=== PATIENT | male | born 1945 | race Caucasian/White ===

== ENCOUNTER → 2019-03-18 | Outpatient (CLI) | payer BC ==
--- NOTE | 2019-03-18 14:11 | Diagnostic Imaging Report ---
CLINICAL INDICATION: Patient with pain in low back for about three weeks. EXAM: X-ray of the lumbar spine, three views. COMPARISON: None. FINDINGS: There is levoscoliosis of lumbar spine. There is severely hypertrophic spurs seen throughout the thoracolumbar spine and facet arthropathy/hypertrophy. There are mild compression deformities involving the L1 vertebra with no definite cortical disruption. Sacroiliac joints are unremarkable. IMPRESSION: 1: There is a mild compression deformity of the L1 vertebra of unknown age. CT scan of the lumbar spine would better evaluate. 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 Dictated by: Dictated on workstation # [id number]
== END ==
LOC: RAD FS 13:41
PROVIDERS: ATTEND Family Medicine
DX: M47.816 Spondylosis without myelopathy or radiculopathy, lumbar region (principal); M43.8X6 Other specified deforming dorsopathies, lumbar region; M51.37 Other intervertebral disc degeneration, lumbosacral region
CPT/HCPCS: 72110

== ENCOUNTER → 2019-12-24 | Outpatient (CLI) | payer MEDICARE, OTHER ==
--- NOTE | 2019-12-24 16:36 | Diagnostic Imaging Report ---
PROCEDURE: MRI lumbar spine. TECHNIQUE: Multiplanar, multisequence MRI of the lumbar spine was performed without contrast. DATE: December 24, 2019. COMPARISON: Lumbar spine radiographs March 18, 2019. INDICATION: 74-year-old male, low back pain. FINDINGS: There is a mild lumbar levocurvature. The anterior to posterior alignment of the lumbar spine is unremarkable. There is no evidence of a diffuse marrow infiltrating or replacing process. There is no identified pars interarticularis defect. There is no identified concerning focal bone lesion. There is no identified compression deformity or other fracture. The visualized cord and conus medullaris is unremarkable and terminates at the L1 level. There is moderate disc height loss at L1-L2. There is severe disc height loss at L5-S1. L1-L2: There is mild diffuse disc bulge. There are right greater than left facet degenerative changes. There is ligamentum flavum hypertrophy on the right. There is mild bilateral foraminal narrowing. There is no high-grade spinal canal stenosis. L2-L3: There is mild diffuse disc bulge. The facet joints and ligamentum flavum are unremarkable. There is mild right foraminal narrowing. There is no spinal canal stenosis. L3-L4: There is mild diffuse disc bulge. There are mild bilateral facet degenerative changes without prominent ligamentum flavum hypertrophy. There is moderate right and mild left foraminal narrowing. There is no high-grade spinal canal stenosis. L4-L5: There is diffuse disc bulge. There is severe bilateral facet degenerative changes with ligamentum flavum hypertrophy. There is a periarticular cyst associated with the left facet joint extending towards the central aspect of the spinal canal, measuring 12 x 10 mm in size. There is severe narrowing of the bilateral lateral recesses. There is moderate to severe left and moderate to severe right foraminal narrowing. There is severe spinal canal stenosis. L5-S1: There is diffuse disc bulge. There are mild left facet degenerative changes. There is moderate to severe bilateral foraminal narrowing. There is no spinal canal stenosis. IMPRESSION: Multilevel disc and facet degenerative changes of the lumbar spine, as described specifically level by level above. Findings are most notable at L4-L5, L3-L4 and L5-S1. Dictated by: Dictated on workstation # [id number]
== END ==
LOC: RAD 12:12
PROVIDERS: ATTEND Physician Assistant
DX: M47.816 Spondylosis without myelopathy or radiculopathy, lumbar region (principal)
CPT/HCPCS: 72148

== ENCOUNTER → 2020-07-10 | Outpatient (CLI) | payer MEDICARE, OTHER ==
--- NOTE | 2020-07-10 12:45 | Diagnostic Imaging Report ---
INDICATION: Right knee pain, fall. TIME OF EXAM: 12:22 PM Multiple views of the right knee were obtained. The lateral plate and numerous screws transfixing distal femur. There is lateral plate and numerous screws transfixing the proximal tibia. The hardware appears to be intact without fracture or loosening. Alignment of the knee is normal. Joint spaces are well maintained. Articular surfaces appear to be fairly smooth. There is no joint effusion. IMPRESSION: Postoperative changes to the femur and tibia. No acute abnormality is detected. Dictated by: Dictated on workstation # [id number]
--- NOTE | 2020-07-10 14:56 | Diagnostic Imaging Report ---
INDICATION: Pain in the right leg, fall. TIME OF EXAM: 12:17 PM. FINDINGS: Two views of the right femur were obtained. The alignment at the hip and knee is normal. There is a lateral plate and numerous screws transfixing the distal femur. The hardware is intact. There is also hardware transfixing the proximal right tibia. The bony structures are intact. No acute bony abnormality is seen. IMPRESSION: Postop changes. No acute abnormality is detected. Dictated by: Dictated on workstation # [id number]
== END ==
LOC: RAD FS 12:00
PROVIDERS: ATTEND Nurse Practitioner Family
DX: S89.91XA Unspecified injury of right lower leg, initial encounter (principal); Z98.890 Other specified postprocedural states
CPT/HCPCS: 73552; 73562

== ENCOUNTER 2021-05-03 06:42 | Emergency (ER) | payer MEDICARE, OTHER ==
--- NOTE | 2021-05-03 07:14 | ED Lower Extremity ---
General Chief Complaint: Lower Extremity Stated Complaint: RT LOWER BACK/HIP PAIN Source: patient, EMS Exam Limitations: no limitations History of Present Illness Date Seen by Provider: May 03, 2021 Time Seen by Provider: 07:00 Initial Comments 75-year-old male presents via EMS from home this morning because of severe right lower back and hip pain. Patient states it has been bad for the past 2 weeks and significantly worse the last several days. He saw his orthopedic surgeon 3 days ago and scheduled for an MRI of his lumbar spine this morning at 5 in [place]. He was given oral steroids as well as a muscle relaxer and he has been taking his 's hydrocodone with no relief. Past surgical history signif icant for lumbar laminectomy on the left side a few years ago as well as a right femur fracture and a margaret in his right hip and femur for repair a few years ago. States has had pain on the right lower extremity for years. For the past 2 days, patient is been unable to get out of bed due to his severe pain and has not been eating. Took a hydrocodone this morning without any relief, then given 100mcg Fentanyl en-route by EMS Allergies and Home Medications Allergies Coded Allergies: Penicillins (Verified Allergy, Unknown, 05/03/21) Patient Home Medication List Home Medication List Reviewed: Yes Review of Systems Constitutional: No fever, No malaise, No weakness; other (pain 10/10) EENTM: no symptoms reported Respiratory: No cough, No short of breath, No stridor, No wheezing Cardiovascular: No chest pain, No edema, No palpitations, No syncope Gastrointestinal: No abdominal pain; loss of appetite; No nausea, No vomiting Genitourinary: No dysuria, No frequency Musculoskeletal: back pain, joint pain, muscle pain; No neck pain Skin: No change in color, No rash Psychiatric/Neurological: Denies Numbness, Denies Paresthesia, Denies Tingling, Denies Weakness Past Glzhxun-Seegae-Wrnjcd Hx Patient Social History Tobacco Use?: Yes Tobacco type used: Cigarettes Substance use?: No Alcohol Use?: Yes Alcohol type: Beer, Wine Alcohol Frequency: Once in a while Pt feels they are or have been: No Immunizations Up To Date Influenza Vaccine Up-to-Date: No; Not Current Physical Exam Vital Signs Vital Signs - First Documented 05/03/21 06:56 Temp 36.2 Pulse 65 Resp 16 B/P (MAP) 147/84 (105) Pulse Ox 93 O2 Delivery Room Air Capillary Refill : Less Than 3 Seconds Height, Weight, BMI Height: '" Weight: lbs. oz. kg; BMI Method: General Appearance: WD/WN, no apparent distress, other (sleeping in room and had to be awakened. ) HEENT: PERRL/EOMI, normal ENT inspection Neck: non-tender, supple Cardiovascular: regular rate, rhythm, no JVD Respiratory: chest non-tender, lungs clear, normal breath sounds, no respiratory distress, no accessory muscle use Gastrointestinal: non tender, soft; No distended, No guarding, No rebound Back: normal inspection, no CVA tenderness, no vertebral tenderness, other (mild paraspinal TTP R lower lumbar) Hips: right hip bone tenderness, right hip limited range of motion, right hip pain, right hip soft tissue tenderness Legs: bilateral leg non-tender, bilateral leg normal inspection, bilateral leg normal range of motion, bilateral leg no evidence of injury Knees: bilateral knee non-tender, bilateral knee normal inspection, bilateral knee normal range of motion, bilateral knee no evidence of injury Ankles: bilateral ankle non-tender, bilateral ankle normal inspection, bilateral ankle normal range of motion Feet: bilateral foot non-tender, bilateral foot normal inspection, bilateral foot normal range of motion Neurologic/Tendon: normal sensation, normal motor functions, responds to pain Neurologic/Psychiatric: no motor/sensory deficits, alert, normal mood/affect, oriented x 3 Skin: normal color, warm/dry Progress/Results/Core Measures Results/Orders Lab Results Laboratory Tests Test 05/03/21 06:48 Range/Units White Blood Count 12.4 H 4.3-11.0 10^3/uL Red Blood Count 5.21 4.35-5.85 10^6/uL Hemoglobin 16.7 13.3-17.7 G/DL Hematocrit 50 40-54 % Mean Corpuscular Volume 96 80-99 FL Mean Corpuscular Hemoglobin 32 25-34 PG Mean Corpuscular Hemoglobin Concent 34 32-36 G/DL Red Cell Distribution Width 13.2 10.0-14.5 % Platelet Count 209 130-400 10^3/uL Mean Platelet Volume 10.7 H 7.4-10.4 FL Immature Granulocyte % (Auto) 1 % Neutrophils (%) (Auto) 71 42-75 % Lymphocytes (%) (Auto) 18 12-44 % Monocytes (%) (Auto) 9 0-12 % Eosinophils (%) (Auto) 0 0-10 % Basophils (%) (Auto) 1 0-10 % Neutrophils # (Auto) 8.8 H 1.8-7.8 X 10^3 Lymphocytes # (Auto) 2.3 1.0-4.0 X 10^3 Monocytes # (Auto) 1.2 H 0.0-1.0 X 10^3 Eosinophils # (Auto) 0.0 0.0-0.3 10^3/uL Basophils # (Auto) 0.1 0.0-0.1 10^3/uL Immature Granulocyte # (Auto) 0.1 0.0-0.1 10^3/uL Sodium Level 140 135-145 MMOL/L Potassium Level 4.1 3.6-5.0 MMOL/L Chloride Level 102 98-107 MMOL/L Carbon Dioxide Level 25 21-32 MMOL/L Anion Gap 13 5-14 MMOL/L Blood Urea Nitrogen 18 7-18 MG/DL Creatinine 0.96 0.60-1.30 MG/DL Estimat Glomerular Filtration Rate 77 BUN/Creatinine Ratio 19 Glucose Level 124 H 70-105 MG/DL Calcium Level 9.1 8.5-10.1 MG/DL Corrected Calcium 8.8 8.5-10.1 MG/DL Total Bilirubin 0.5 0.1-1.0 MG/DL Aspartate Amino Transf (AST/SGOT) 15 5-34 U/L Alanine Aminotransferase (ALT/SGPT) 17 0-55 U/L Alkaline Phosphatase 83 40-136 U/L Total Protein 7.5 6.4-8.2 GM/DL Albumin 4.4 3.2-4.5 GM/DL My Orders Orders - MANASVENSTGANESH RUIZ DO Ct Pelvis Wo (05/03/21 07:13) Ct Lumbar Spine Wo (05/03/21 07:13) Fentanyl Inj (Sublimaze Injection) (05/03/21 07:45) Cbc With Automated Diff (05/03/21 07:43) Comprehensive Metabolic Panel (05/03/21 07:43) Fentanyl Inj (Sublimaze Injection) (05/03/21 08:45) Fentanyl Inj (Sublimaze Injection) (05/03/21 08:40) Medications Given in ED Current Medications Medications Dose Ordered Sig/Ynes Route Start Time Stop Time Status Last Admin Dose Admin Fentanyl Citrate 50 mcg ONCE ONCE IVP 05/03/21 07:45 05/03/21 07:46 DC 05/03/21 07:49 50 MCG Fentanyl Citrate 50 mcg ONCE ONCE IVP 05/03/21 08:45 05/03/21 08:46 DC 05/03/21 08:45 50 MCG Vital Signs/I&O 05/03/21 05/03/21 06:56 10:14 Temp 36.2 36.2 Pulse 65 74 Resp 16 16 B/P (MAP) 147/84 (105) 142/72 Pulse Ox 93 97 O2 Delivery Room Air Room Air Blood Pressure Mean: 105 Progress Progress Note : Progress Note [facility] Dr Foster's office @ 1329[facility] [place] and only plan at the time was to get an MRI, then follow up 0845- called Dr John to consider admission Diagnostic Imaging Diagonstic Imaging: CT Comments COMPARISON: No priors for direct comparison. There are advanced degenerative changes to the visualized lower lumbar spine with lower lumbar spinal decompression with laminectomy. Seen best on axial image 288 series 3, there is a subtle buckle deformity to the superficial and deep cortex of the inferior right pubic ramus consistent with a nondisplaced fracture. While a superior ramus fracture would be suspected, one cannot be visualized. The articular acetabulum and the anterior and posterior columns appeared normal. There are arthritic changes to the bilateral hips as a symmetric chronic finding. No sacrococcygeal fracture. There are degenerative changes to the SI joints without diastases or erosion. The pubic symphysis reveals degenerative changes without diastases. The medial pubic bone is intact. No pelvic intra or extraperitoneal hematoma and no sidewall or intramuscular hemorrhage. The femoral heads, necks, trochanters and subtrochanteric shafts intact. No other significant finding. IMPRESSION: A subtle acuity indeterminate buckle fracture deformity to the right inferior pubic ramus. No other fracture identified and no evidence for pelvic intra or extraperitoneal nor intramuscular hematoma. Arthritic changes to the remaining pelvic and hip joints but no other potential acute finding. Dictated on workstation # [id number] Dict: 05/03/21 0759 Trans: 05/03/21 0818 [facility] [id number] Interpreted by: KATIUSKA BRAVO Electronically signed by: COMPARISON: MRI of the lumbar spine without contrast dated 12/24/2019. FINDINGS: There is a partially visualized distal abdominal aortic aneurysm which measures at least 4.4 cm in greatest axial dimension. 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 There is no acute lumbar spine fracture. Stable mild chronic anterior wedge compression deformity of the L1 vertebra. There are interval posterior changes to the lower lumbar spine with L4-L5 laminectomies. There is no lumbar instrumentation seen. There are hypertrophic spurs throughout the lumbar spine with facet arthropathy. L1-L2: There is stable grade 1 retrolisthesis of L1 on L2. Again noted diffuse disk bulge and moderate loss of disk space height. There are disk spurs extend into the foraminal regions bilaterally with moderate to severe bilateral neural foramen narrowing. There is at least mild to moderate central canal stenosis. There is mild bilateral facet arthropathy. L2-L3: Stable subtle grade 1 retrolisthesis of L2 on L3. There is diffuse disk bulge with moderate loss of disk space height. There is moderate bilateral facet arthropathy. There is severe right neural foramen narrowing and mild to moderate left neural foramen narrowing which appears stable. There is at least mild central canal narrowing. L3-L4: There is a diffuse disk bulge and moderate bilateral facet arthropathy/hypertrophy. There is interval decompression of the thecal sac posteriorly with no significant bony central canal narrowing. Again seen moderate right neural foramen narrowing and moderate to severe left neural foramen narrowing which is not significantly changed. L4-L5: There is severe bilateral facet arthropathy/hypertrophy. There is interval resection of previously seen prominent left articular facet synovial cyst. There is no significant bony central canal narrowing. Stable severe bilateral neural foramen narrowing. L5-S1: There is diffuse disk bulge with moderate to severe loss of disk space height. There is severe bilateral facet arthropathy/hypertrophy. There is interval decompression of the thecal sac with no significant bony central canal stenosis. There are stable severe bilateral neural foramen narrowing. IMPRESSION: 1: There are interval posterior changes with L4-L5 laminectomies and decompression of the thecal sac. Previously seen left L4-L5 articular facet synovial cyst has been resected in the interim. There is now no significant bony central canal narrowing at the L3-L5 level. 2: There is no acute lumbar spine fracture. Stable mild anterior wedge compression fracture deformity of the L1 vertebra. 3: There is otherwise no significant change to the multilevel lumbar spine degenerative disk disease including grade 1 retrolisthesis of L1 on L2 and L2 on L3. 4: Partially visualized distal abdominal aortic aneurysm and a left common iliac artery aneurysm. Ultrasound abdominal aorta and iliac arteries would better evaluate. Dictated on workstation # [id number] Dict: 05/03/21 0808 Trans: 05/03/21 0821 [facility] [id number] Interpreted by: ERI RHODES MD Electronically signed by: Departure Communication (Admissions) Time/Spoke to Admitting Phy: 08:40 Dr John accepts for admission to [facility] for pain control with re-hab/ PT. She will coordinate further care with his Ortho surgeon, Dr Foster as needed. Impression Primary Impression: Intractable low back pain Additional Impression: Unable to walk Disposition: 02 XFER SHT-TRM HOSP Condition: Improved Admissions Decision to Admit Reason: Admit from ER (General) Decision to Admit/Date: May 03, 2021 Time/Decision to Admit Time: 08:00 Transfer Transfer Reason: Exceeds level of care Time Spoke to Accepting Phy: 08:40 Transfer Progress Notes To [place] for pain control and rehab. Coordinating care with Ortho Departure-Patient Inst. Referrals: JAVIER ROBB MD (PCP/Family) Primary Care Physician GANESH SETWART DO May 03, 2021 07:14
[2021-05-03] MEDS ORDERED: fentaNYL INJ 100 MCG/2 ML AMP IVP ONE ×2 (07:45→08:45)
[2021-05-03 08:02] LABS: HEMATOCRIT 50 % (40-54); HEMOGLOBIN 16.7 G/DL (13.3-17.7); MEAN CORPUSCULAR HEMOGLOBIN 32 PG (25-34); MEAN CORPUSCULAR HGB CONC 34 G/DL (32-36); MEAN CORPUSCULAR VOLUME 96 FL (80-99); WHITE BLOOD COUNT 12.4 10^3/uL (4.3-11.0)
[2021-05-03 08:03] LABS: PLATELET COUNT 209 10^3/uL (130-400)
[2021-05-03 08:04] LABS: BASOPHILS % (AUTO) 1 % (0-10); EOSINOPHILS % (AUTO) 0 % (0-10); LYMPHOCYTES % (AUTO) 18 % (12-44); MEAN PLATELET VOLUME 10.7 FL (7.4-10.4); MONOCYTES % (AUTO) 9 % (0-12); NEUTROPHILS % (AUTO) 71 % (42-75)
[2021-05-03 08:05] LABS: BASOPHILS # (AUTO) 0.1 10^3/uL (0.0-0.1); LYMPHOCYTES # (AUTO) 2.3 X 10^3 (1.0-4.0); MONOCYTES # (AUTO) 1.2 X 10^3 (0.0-1.0); NEUTROPHILS # (AUTO) 8.8 X 10^3 (1.8-7.8)
[2021-05-03 08:07] LABS: ALBUMIN 4.4 GM/DL (3.2-4.5); BILIRUBIN,TOTAL 0.5 MG/DL (0.1-1.0); CALCIUM 9.1 MG/DL (8.5-10.1); CREATININE SERUM 0.96 MG/DL (0.60-1.30); POTASSIUM 4.1 MMOL/L (3.6-5.0); TOTAL PROTEIN 7.5 GM/DL (6.4-8.2)
--- NOTE | 2021-05-03 08:18 | Diagnostic Imaging Report ---
PROCEDURE: CT pelvis without contrast. TECHNIQUE: Multiple contiguous axial images were obtained through the pelvis without the use of intravenous contrast. Sagittal and coronal reformations were performed. Auto Exposure Controls were utilized during the CT exam to meet ALARA standards for radiation dose reduction. INDICATION: Right hip and right back pain. COMPARISON: No priors for direct comparison. There are advanced degenerative changes to the visualized lower lumbar spine with lower lumbar spinal decompression with laminectomy. Seen best on axial image 288 series 3, there is a subtle buckle deformity to the superficial and deep cortex of the inferior right pubic ramus consistent with a nondisplaced fracture. While a superior ramus fracture would be suspected, one cannot be visualized. The articular acetabulum and the anterior and posterior columns appeared normal. There are arthritic changes to the bilateral hips as a symmetric chronic finding. No sacrococcygeal fracture. There are degenerative changes to the SI joints without diastases or erosion. The pubic symphysis reveals degenerative changes without diastases. The medial pubic bone is intact. No pelvic intra or extraperitoneal hematoma and no sidewall or intramuscular hemorrhage. The femoral heads, necks, trochanters and subtrochanteric shafts intact. No other significant finding. IMPRESSION: A subtle acuity indeterminate buckle fracture deformity to the right inferior pubic ramus. No other fracture identified and no evidence for pelvic intra or extraperitoneal nor intramuscular hematoma. Arthritic changes to the remaining pelvic and hip joints but no other potential acute finding. Dictated by: Dictated on workstation # [id number]
--- NOTE | 2021-05-03 08:21 | Diagnostic Imaging Report ---
Clinical indication: Patient with right lower back pain radiates to right hip x2 weeks. Patient with right femur/hip ORIF. EXAM: Axial CT scan of the lumbar spine performed without IV contrast. Sagittal and coronal reformatted images are created. Auto Exposure Controls were utilized during the CT exam to meet ALARA standards for radiation dose reduction. COMPARISON: MRI of the lumbar spine without contrast dated 12/24/2019. FINDINGS: There is a partially visualized distal abdominal aortic aneurysm which measures at least 4.4 cm in greatest axial dimension. 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 There is no acute lumbar spine fracture. Stable mild chronic anterior wedge compression deformity of the L1 vertebra. There are interval posterior changes to the lower lumbar spine with L4-L5 laminectomies. There is no lumbar instrumentation seen. There are hypertrophic spurs throughout the lumbar spine with facet arthropathy. L1-L2: There is stable grade 1 retrolisthesis of L1 on L2. Again noted diffuse disk bulge and moderate loss of disk space height. There are disk spurs extend into the foraminal regions bilaterally with moderate to severe bilateral neural foramen narrowing. There is at least mild to moderate central canal stenosis. There is mild bilateral facet arthropathy. L2-L3: Stable subtle grade 1 retrolisthesis of L2 on L3. There is diffuse disk bulge with moderate loss of disk space height. There is moderate bilateral facet arthropathy. There is severe right neural foramen narrowing and mild to moderate left neural foramen narrowing which appears stable. There is at least mild central canal narrowing. L3-L4: There is a diffuse disk bulge and moderate bilateral facet arthropathy/hypertrophy. There is interval decompression of the thecal sac posteriorly with no significant bony central canal narrowing. Again seen moderate right neural foramen narrowing and moderate to severe left neural foramen narrowing which is not significantly changed. L4-L5: There is severe bilateral facet arthropathy/hypertrophy. There is interval resection of previously seen prominent left articular facet synovial cyst. There is no significant bony central canal narrowing. Stable severe bilateral neural foramen narrowing. L5-S1: There is diffuse disk bulge with moderate to severe loss of disk space height. There is severe bilateral facet arthropathy/hypertrophy. There is interval decompression of the thecal sac with no significant bony central canal stenosis. There are stable severe bilateral neural foramen narrowing. IMPRESSION: 1: There are interval posterior changes with L4-L5 laminectomies and decompression of the thecal sac. Previously seen left L4-L5 articular facet synovial cyst has been resected in the interim. There is now no significant bony central canal narrowing at the L3-L5 level. 2: There is no acute lumbar spine fracture. Stable mild anterior wedge compression fracture deformity of the L1 vertebra. 3: There is otherwise no significant change to the multilevel lumbar spine degenerative disk disease including grade 1 retrolisthesis of L1 on L2 and L2 on L3. 4: Partially visualized distal abdominal aortic aneurysm and a left common iliac artery aneurysm. Ultrasound abdominal aorta and iliac arteries would better evaluate. Dictated by: Dictated on workstation # [id number]
[2021-05-03] MEDS ORDERED: fentaNYL INJ 100 MCG/2 ML AMP ONE (08:40)
[2021-05-03 10:14] VITALS: BP 142/72
== END 2021-05-03 10:05 | disposition short-term general hospital (02) ==
LOC: EDUNIT# 06:42 → ER FS 06:43
DX: M54.5 Low back pain (principal); R26.2 Difficulty in walking, not elsewhere classified
CPT/HCPCS: 36415; 72131; 72192; 80053; 85025

== ENCOUNTER 2021-05-18 08:44 | Inpatient (IN) | payer MEDICARE, OTHER ==
[~2021-05-18] VITALS: Ht 180.3 cm; Wt 108.4 kg
[2021-05-18] MEDS ORDERED: ONDANSETRON 4 MG/2 ML (SDV) Z0FRAN IVP PRN (09:15)
[2021-05-18] MEDS ORDERED: DOCUSATE SODIUM 100 MG (COLACE) CAP PO PRN (09:15)
[2021-05-18] MEDS ORDERED: CALCIUM CARBONATE 500 MG (TUMS) TAB.CHEW PO PRN (09:15)
[2021-05-18] MEDS ORDERED: diphenhydrAMINE 25 MG TAB (BENADRYL) PO PRN (09:15)
[2021-05-18] MEDS ORDERED: ACETAMINOPHEN 500 MG TAB (TYLENOL) PO PRN (09:15)
[2021-05-18] MEDS ORDERED: ONDANSETRON 4 MG (ZOFRAN) ORAL DISSOLVE TAB PO PRN (09:15)
[2021-05-18] MEDS ORDERED: ALPRAZolam 0.25 MG (XANAX) TAB PO PRN (09:15)
[2021-05-18 11:00] VITALS: BP 135/79
[2021-05-18 12:01] LABS: BASOPHILS % (AUTO) 0 % (0-10); LYMPHOCYTES % (AUTO) 17 % (12-44); MEAN CORPUSCULAR VOLUME 98 fL (80-99)
[2021-05-18 12:03] LABS: EOSINOPHILS % (AUTO) 0 % (0-10); HEMATOCRIT 42 % (40-54); HEMOGLOBIN 13.9 g/dL (13.3-17.7); LYMPHOCYTES # (AUTO) 1.8 10^3/uL (1.0-4.0); MEAN CORPUSCULAR HEMOGLOBIN 32 pg (25-34); MEAN CORPUSCULAR HGB CONC 33 g/dL (32-36); MEAN PLATELET VOLUME 10.1 fL (9.0-12.2); MONOCYTES # (AUTO) 1.1 10^3/uL (0.0-1.0); MONOCYTES % (AUTO) 10 % (0-12); NEUTROPHILS # (AUTO) 7.7 10^3/uL (1.8-7.8); NEUTROPHILS % (AUTO) 71 % (42-75); PLATELET COUNT 127 10^3/uL (130-400); WHITE BLOOD COUNT 10.8 10^3/uL (4.3-11.0)
[2021-05-18 12:21] LABS: ALANINE AMINOTRANSFERASE 39 U/L (0-55); ALBUMIN 3.2 GM/DL (3.2-4.5); ALKALINE PHOSPHATASE 52 U/L (40-136); BILIRUBIN,TOTAL 0.8 MG/DL (0.1-1.0); BUN/CREATININE RATIO 12; CALCIUM 8.5 MG/DL (8.5-10.1); CARBON DIOXIDE 25 MMOL/L (21-32); CHLORIDE 102 MMOL/L (98-107); CREATININE SERUM 0.84 MG/DL (0.60-1.30); GFR ESTIMATED 90; GLUCOSE 119 MG/DL (70-105); POTASSIUM 4.1 MMOL/L (3.6-5.0); SODIUM 134 MMOL/L (135-145); TOTAL PROTEIN 5.7 GM/DL (6.4-8.2)
--- NOTE | 2021-05-18 12:51 | History & Physical ---
STEFFEN MEDINA MED STUDENT 05/18/21 1251: History of Present Illness History of Present Illness Reason for visit/HPI CC: arrhythmia with syncope This is Ary a 75 yo male on day 1 of his hospital stay with the chief complaint of arrhythmia with syncope. Pt was calm, cooperative, and engaged during questioning. He was accompanied in the room by his that helped provide the history. [place]federico [place] [facility] for lumbar back surgery completed by Dr. Bolaños. The surgery was performed to relieve a pinched nerve that was/is causing significant shooting pain down his right leg. Pt was informed that the nerve was very damaged and that it would take was time for the symptoms to resolve. Pt described getting light headed and his right leg giving out yesterday after an episode of shooting pain occurred. An EKG was obtained and was significant for sinus tach with arrhythmias PVCs and SVTs were noted on EKG. Pt was then transferred to [facility] for consultation with cardiology. Pt stated that he was on pain medication but that he can't remember what it is called and stated that it doesn't help the pain in his leg. He put the pain at a 8/10 today. The pain is worse when walking or moving and it better at rest but he clarified that it still occurs even at rest. . Date of Admission May 18, 2021 at 10:30 Date Seen by a Provider: May 18, 2021 Time Seen by a Provider: 12:00 I consulted on this patient on 05/18/21 12:40 Attending Physician Cassandra Gomes DO Admitting Physician Maxx Dixon MD Consult Allergies and Home Medications Allergies Coded Allergies: Penicillins (Verified Allergy, Unknown, 05/03/21) Past Okbzfsf-Wvktlq-Ejfvfw Hx Patient Social History Marrital Status: Tobacco Use?: Yes Tobacco type used: Cigarettes Smoking Status: Current Everyday Smoker (40 pack year history) Use of E-Cig and/or Vaping dev: No Substance use?: No Alcohol Use?: Yes Alcohol type: Beer, Wine Alcohol Frequency: Couple times a week Immunizations Up To Date First/Initial COVID19 Vaccinat: Pt is not vaccinated for COVID and stated that he "will not be vaccinated" Tetanus Booster (TDap): Unknown Seasonal Allergies Seasonal Allergies: Yes Current Status Primary Language: Citizen Of [place] Past Medical History Surgeries: Appendectomy, Orthopedic (multiple R knee surgeries, fibula and femur repair ) Asthma Benign Prostatic Hyperpl Family Medical History COPD (mother) Review of Systems Constitutional: No chills, No diaphoresis, No fever; weakness, weight loss EENTM: No ear pain, No blurred vision, No eye pain, No hoarseness, No throat pain Respiratory: No cough, No dyspnea on exertion, No short of breath Cardiovascular: No chest pain; edema (right LE); No Hx of Intervention, No palpitations Gastrointestinal: No abdominal pain, No constipation, No diarrhea, No nausea, No vomiting Genitourinary: No decreased output, No dysuria, No frequency, No pain Musculoskeletal: joint pain (R knee); No muscle pain Skin: No change in color, No dryness, No lesions, No rash Psychiatric/Neurological: Denies Anxiety, Denies Depressed, Denies Headache; Numbness; Denies Seizure; Tingling, Weakness Physical Exam Vital Signs Vital Signs - First Documented 05/18/21 11:00 Temp 36.8 Pulse 80 Resp 18 B/P (MAP) 135/79 (97) Pulse Ox 96 O2 Delivery Room Air Capillary Refill : Height, Weight, BMI Height: '" Weight: lbs. oz. kg; 33.34 BMI Method: General Appearance: No Apparent Distress, WD/WN, Other HEENT: PERRL/EOMI, Normal ENT Inspection Neck: Normal Inspection, Non Tender, Supple Respiratory: Chest Non Tender, Lungs Clear, Normal Breath Sounds, No Accessory Muscle Use, No Respiratory Distress Cardiovascular: Regular Rate, Rhythm, No Gallop, No Murmur, Normal Peripheral Pulses, Other (HPI detailes EKG findings but sounded regular today) Gastrointestinal: Normal Bowel Sounds, Non Tender, Distended Rectal: Deferred Extremity: Normal Inspection, Non Tender, No Calf Tenderness, Pedal Edema (in right LE), Other (multiple scared on right lateral knee) Neurologic/Psychiatric: Alert, Oriented x3, No Motor/Sensory Deficits, Normal Mood/Affect Skin: Normal Color, Warm/Dry Assessment/Plan Assessment and Plan arrhythmia with syncope consult cardiology ECHO repeat EKG Right knee pain and instability fall risk PT/OT encourage use of walker asthma continue home medications enlarged prostate continue tamsulosin small lumbar aneurysm CASSANDRA GOMES DO 05/19/21 0632: History of Present Illness History of Present Illness Reason for visit/HPI CC: Syncope with cardiac arrhythmia HPI: This is a male pt who was transferred from [facility] after lumbar spine surgery earlier in the week who presented to [facility] for cardiac arrhythmia. Apparently he was up walking with PT and had a syncopal episode. EKG showed PACs and sinus arrhythmia. Due to the fact he had a recent diagnosis of an abdominal aneurysm he was assessed to be high risk for multi vessel disease and sudden cardiac so he was moved and cardiology Dr. Carreon will evaluate echoca rdiogram and EKD and evaluate for any acute issues. He has had a long and very slow recovery from back surgery. Allergies and Home Medications Allergies Coded Allergies: Penicillins (Verified Allergy, Unknown, 05/03/21) Patient Home Medication List Home Medication List Reviewed: Yes Past Bwvdpee-Rzfzxm-Mihtkj Hx Patient Social History Marrital Status: Tobacco Use?: Yes Tobacco type used: Cigarettes Smoking Status: Current Everyday Smoker (40 pack year history) Use of E-Cig and/or Vaping dev: No Substance use?: No Past Medical History Surgeries: Appendectomy, Orthopedic (multiple R knee surgeries, fibula and femur repair ) Asthma, COPD Benign Prostatic Hyperpl Chronic Back Pain Review of Systems Constitutional: see HPI, dizziness Musculoskeletal: back pain, joint pain (R knee) Physical Exam General Appearance: No Apparent Distress, WD/WN, Chronically ill Respiratory: No Accessory Muscle Use, No Respiratory Distress, Decreased Breath Sounds Cardiovascular: Irregularly Irregular, Tachycardia Back: Decreased Range of Motion Neurologic/Psychiatric: Alert, Oriented x3 Assessment/Plan Assessment and Plan Assessment: Syncope with cardiac arrhythmia Smoker COPD Severe back pain status post lumbar spine surgery Abdominal aortic aneurysm fusiform infrarenal Plan: Cardiac work-up Telemetry Suspicion for heart disease and sudden cardiac Admission Diagnosis Admission Status: Inpatient Order (span 2 midnights) Reason for Inpatient Admission: Syncope with arrhythmia transferred from inpatient status at [facility] status post lumbar spine surgery Supervisory-Addendum Brief Verification & Attestation Participated in pt care: history, MDM, physical Personally performed: exam, history, MDM, supervision of care Care discussed with: Medical Student Procedures: n/a Results interpretation: Verified all documentation Verification and Attestation of Medical Student E/M Service A medical student performed and documented this service in my presence. I reviewed and verified all information documented by the medical student and made modifications to such information, when appropriate. I personally performed the physical exam and medical decision making. Cassandra Gomes, May 19, 2021,06:32 STEFFEN MEDINA MED STUDENT May 18, 2021 12:51 CASSANDRA GOMES DO May 19, 2021 06:32
[2021-05-18] MEDS: HYDROcodone/APAP 5 MG/325 MG (LORTAB) TAB PO PRN ×2 (13:34→20:11)
[2021-05-18] MEDS: NS IV 1000 ML 1,000 ML IV SCH (13:34)
--- NOTE | 2021-05-18 15:58 | Consultation-Cardiology ---
HPI-Cardiology Cardiology Consultation: Date of Consultation 05/18/2021 Date of Admission 05/18/2021 Attending Physician Cassandra John DO Admitting Physician Maxx Dixon MD Consulting Physician KEYUR FAITH JR, MD HPI: Time Seen by a Provider: 15:53 Chief Complaint: Reason for consultation: Lightheaded and arrhythmia. I had the pleasure of seeing Ary on the medical/surgical unit this afternoon. He is a 75-year-old male with no known history of cardiac disease. On Friday the patient underwent lumbar spine surgery at [facility]. Yesterday he was in the james ambulating with physical therapy and developed severe back pain. At that point, one half of his knees gave out and he fell to the ground. He was also lightheaded at that time but denies any syncope. The hospitalist was notified and then he had an electrocardiogram that showed frequent supraventricular ectopy. In light of these symptoms, the patient was transferred to [facility] for cardiac evaluation. He continues to have excruciating back pain. He does not recall having this sort of lightheaded spell in the past but he has had unsteady gait due to the pain in his back. The pain has been so bad that at times he cannot walk. He denies any chest pain, dyspnea, paroxysmal nocturnal dyspnea, orthopnea, palpitations, or lower extremity edema. He smokes approximately 1 pack of cigarettes per day. Certain portions of this document may have been dictated utilizing voice recognition technology. Inherent to this technology, typographical and grammatical errors may exist. As much as I am diligent to identify and correct these mistakes, some errors may remain in the document. Review of Systems-Cardiology Review of Systems Other comments Review of 10 organ systems is as per the history of present illness, otherwise negative. WPH-Ccttbn-Vbsbjf Hx Patient Social History Marrital Status: Smoking Status: Current Everyday Smoker (40 pack year history) Have you traveled recently?: No Alcohol Use?: Yes Pt feels they are or have been: No Tobacco type used: Cigarettes Past Medical History PMH As described under Assessment. Family Medical History Family Medical History: The patient does not know of any family history of premature coronary artery disease. Allergies and Home Medications Allergies Coded Allergies: Penicillins (Verified Allergy, Unknown, 05/03/21) Patient Home Medication List Home Medication List Reviewed: Yes Exam Vital Signs Vital Signs Date Time Temp Pulse Resp B/P (MAP) Pulse Ox O2 Delivery O2 Flow Rate FiO2 05/18/21 14:58 78 05/18/21 13:04 Room Air 05/18/21 11:00 36.8 18 135/79 (97) 96 Physical Exam General: Alert. He appears in mild distress due to back pain. Well nourished and appears stated age. He is obese. Eye: Extraocular movements are intact. Conjunctivae are clear. There are no xanthelasma. HENT: Normocephalic. Atraumatic. Carotid pulsations 2/2 without bruits. Neck: Jugular venous pressure does not appear elevated. No thyromegaly appreciated. Respiratory: Lungs are clear to auscultation. Respirations are non-labored. Br eath sounds are equal. Symmetrical chest wall expansion. Cardiovascular: Normal rate. Regular rhythm. No murmur. No gallop. Point of maximal impulse is not appear displaced. Good pulses equal in all extremities. No edema. Gastrointestinal: Soft. Normal bowel sounds. Skin: Skin turgor is normal. There is no pallor. Musculoskeletal: No kyphosis or scoliosis appreciated. Neurologic: Alert and oriented to person, place, time. Cranial nerves 3-12 appear grossly intact. The patient has good motor tone strength in the upper and lower extremities bilaterally. Psychiatric: Cooperative. Appropriate mood & affect. Labs Laboratory Tests Test 05/18/21 11:50 Range/Units White Blood Count 10.8 4.3-11.0 10^3/uL Red Blood Count 4.29 L 4.30-5.52 10^6/uL Hemoglobin 13.9 13.3-17.7 g/dL Hematocrit 42 40-54 % Mean Corpuscular Volume 98 80-99 fL Mean Corpuscular Hemoglobin 32 25-34 pg Mean Corpuscular Hemoglobin Concent 33 32-36 g/dL Red Cell Distribution Width 13.4 10.0-14.5 % Platelet Count 127 L 130-400 10^3/uL Mean Platelet Volume 10.1 9.0-12.2 fL Immature Granulocyte % (Auto) 2 % Neutrophils (%) (Auto) 71 42-75 % Lymphocytes (%) (Auto) 17 12-44 % Monocytes (%) (Auto) 10 0-12 % Eosinophils (%) (Auto) 0 0-10 % Basophils (%) (Auto) 0 0-10 % Neutrophils # (Auto) 7.7 1.8-7.8 10^3/uL Lymphocytes # (Auto) 1.8 1.0-4.0 10^3/uL Monocytes # (Auto) 1.1 H 0.0-1.0 10^3/uL Eosinophils # (Auto) 0.0 0.0-0.3 10^3/uL Basophils # (Auto) 0.0 0.0-0.1 10^3/uL Immature Granulocyte # (Auto) 0.2 H 0.0-0.1 10^3/uL Percent Immature Platelet Fraction 4.2 0.0-7.6 % Sodium Level 134 L 135-145 MMOL/L Potassium Level 4.1 3.6-5.0 MMOL/L Chloride Level 102 98-107 MMOL/L Carbon Dioxide Level 25 21-32 MMOL/L Anion Gap 7 5-14 MMOL/L Blood Urea Nitrogen 10 7-18 MG/DL Creatinine 0.84 0.60-1.30 MG/DL Estimat Glomerular Filtration Rate 90 BUN/Creatinine Ratio 12 Glucose Level 119 H 70-105 MG/DL Calcium Level 8.5 8.5-10.1 MG/DL Corrected Calcium 9.1 8.5-10.1 MG/DL Total Bilirubin 0.8 0.1-1.0 MG/DL Aspartate Amino Transf (AST/SGOT) 15 5-34 U/L Alanine Aminotransferase (ALT/SGPT) 39 0-55 U/L Alkaline Phosphatase 52 40-136 U/L Troponin I < 0.028 <0.028 NG/ML B-Type Natriuretic Peptide 83.2 <100.0 PG/ML Total Protein 5.7 L 6.4-8.2 GM/DL Albumin 3.2 3.2-4.5 GM/DL Thyroid Stimulating Hormone (TSH) 1.91 0.35-4.94 UIU/ML Radiology ECHOCARDIOGRAM 1. Normal left ventricular chamber size, wall thickness and systolic function with an estimated ejection fraction of 60-65%. 2. Doppler parameters are consistent with grade 1 diastolic dysfunction. 3. Mild aortic valve sclerosis. 4. Estimated pulmonary artery systolic pressure is 22 mmHg. ECG Impression ECG Initial ECG Intervals Sinus rhythm with first-degree AV block, left anterior hemiblock and occasional premature supraventricular complexes. Diagnosis/Problems Diagnosis/Problems (1) Lightheaded Assessment & Plan: Etiology unclear. There is no structural heart disease on his echocardiogram to explain the lightheadedness. He was lightheaded when he had severe back pain. It is possible he was having a vagal episode. He is now on telemetry monitoring. I would recommend he continue on the telemetry while an inpatient. If the body masker does not reveal any significant arrhythmias to explain lightheadedness, then we may want to consider a more prolonged external crystal mounter after discharge. (2) Premature supraventricular beats Assessment & Plan: He does notToday's electrocardiogram shows occasional premature supraventricular complexes. His electrocardiogram from the outside hospital showed frequent premature supraventricular complexes. His TSH level is normal. Have known chronic obstructive pulmonary disease and does not take any medications that would cause supraventricular arrhythmias. As above, his echocardiogram is unremarkable. I suspect this is a benign condition. However, we do know that patients with frequent supraventricular ectopy are at increased risk of developing atrial fibrillation in the long run. (3) Cigarette smoker Assessment & Plan: The patient needs to quit smoking to help reduce the incidence of medical problems related to tobacco use. (4) Obesity Assessment & Plan: He needs to work on weight loss. This may help with his recovery from surgery and ongoing issues with back pain. Problem Qualifiers (1) Obesity: Body mass index: BMI 33.0-33.9 KEYUR FAITH JR, MD May 18, 2021 15:58
[2021-05-18 16:00] VITALS: BP 126/69
--- NOTE | 2021-05-18 17:01 | Diagnostic Imaging Report ---
EXAMINATION: Chest 1 view. HISTORY: Syncope. COMPARISON: None available. FINDINGS: Heart is mildly enlarged. No pleural effusion or pneumothorax. No edema or pneumonia. IMPRESSION: 1. Mildly enlarged heart. Dictated by: Dictated on workstation # [id number]
[2021-05-18 19:32] VITALS: BP 110/54
[2021-05-18] MEDS: MELATONIN 3 MG TABLET PO PRN (21:33)
[2021-05-18] MEDS: SENNA W/DOCUSATE (SENOKOT S) TABLET PO SCH (21:33)
[2021-05-19] VITALS: BP 146/62
[2021-05-19] MEDS: HYDROcodone/APAP 5 MG/325 MG (LORTAB) TAB PO PRN ×4 (00:16→20:44)
[2021-05-19 04:00] VITALS: BP 126/63
[2021-05-19] MEDS: NS IV 1000 ML 1,000 ML IV SCH (04:36)
[2021-05-19 05:40] LABS: MEAN CORPUSCULAR VOLUME 100 fL (80-99)
[2021-05-19 05:42] LABS: BASOPHILS % (AUTO) 0 % (0-10); EOSINOPHILS # (AUTO) 0.1 10^3/uL (0.0-0.3); EOSINOPHILS % (AUTO) 1 % (0-10); HEMATOCRIT 37 % (40-54); HEMOGLOBIN 12.1 g/dL (13.3-17.7); LYMPHOCYTES # (AUTO) 1.9 10^3/uL (1.0-4.0); LYMPHOCYTES % (AUTO) 20 % (12-44); MEAN CORPUSCULAR HEMOGLOBIN 32 pg (25-34); MEAN CORPUSCULAR HGB CONC 32 g/dL (32-36); MEAN PLATELET VOLUME 10.6 fL (9.0-12.2); MONOCYTES # (AUTO) 0.8 10^3/uL (0.0-1.0); MONOCYTES % (AUTO) 9 % (0-12); NEUTROPHILS # (AUTO) 6.2 10^3/uL (1.8-7.8); NEUTROPHILS % (AUTO) 68 % (42-75); PLATELET COUNT 116 10^3/uL (130-400); WHITE BLOOD COUNT 9.1 10^3/uL (4.3-11.0)
[2021-05-19 06:05] LABS: ALBUMIN 2.8 GM/DL (3.2-4.5); BILIRUBIN,TOTAL 0.9 MG/DL (0.1-1.0); CALCIUM 8.3 MG/DL (8.5-10.1); CREATININE SERUM 0.84 MG/DL (0.60-1.30); POTASSIUM 4.1 MMOL/L (3.6-5.0); TOTAL PROTEIN 5.1 GM/DL (6.4-8.2)
[2021-05-19 07:44] VITALS: BP 137/74
[2021-05-19] MEDS: SENNA W/DOCUSATE (SENOKOT S) TABLET PO SCH ×2 (08:00→20:45)
[2021-05-19] MEDS ORDERED: ACETAMINOPHEN 325 MG TABLET PO PRN (08:30)
--- NOTE | 2021-05-19 10:47 | Occupational Therapy Eval ---
OT Evaluation-General/PLF Medical Diagnosis Admission Date May 18, 2021 at 10:30 Medical Diagnosis: Arrythmia with syncope Onset Date: May 15, 2021 Therapy Diagnosis Therapy Diagnosis: Weakness, Decreased ADL skills Precautions Precautions/Isolations: Fall Prevention, Standard Precautions Weight Bear Status Weight Bearing Restriction: Weight Bearing/Tolerated Back precautions, back brace on when up. Medical History Additional Medical History Back surgery(laminectomy), multiple right knee surgeries, fibular and femur repair. Current History Pt. went to hospital with severe back pain. States he was unable to move and had right LE weakness, numbness ([place]). Transferred to [place] for back surgery. Underwent Fusion per spouse on 05-15-21. Transferred to [facility] on 05-18-21 due to Arrythmia with syncope. Reviewed History: Yes Social History Home: Single Level Current Living Status: Spouse Entry Into Home: Ramp ADL-Prior Level of Function SCALE: Activities may be completed with or without assistive devices. 3-Sqseobdfhq-sxphlad completes the activity by him/herself with no assistance from a helper. 5-Set-up or Clean-up Assistance-helper sets up or cleans up; patient completes activity. Victor assists only prior to or following the activity. 4-Supervision or Touching Assistance-helper provides verbal cues and/or touching/steadying and/or contact guard assistance as patient completes ac tivity. Assistance may be provided throughout the activity or intermittently. 3-Partial/Moderate Assistance-helper does LESS THAN HALF the effort. Victor lifts, holds or supports trunk or limbs, but provides less than half the effort. 2-Substantial/Maximal Assistance-helper does MORE THAN HALF the effort. Victor lifts or holds trunk or limbs and provides more than half the effort. 6-Haajraroa-baohet does ALL the effort. Patient does none of the effort to complete the activity. Or, the assistance of 2 or more helpers is required for the patient to complete the activity. If activity was not attempted, code reason: 7-Patient Refused. 9-Not Applicable-not attempted and the patient did not perform the activity before the current illness, exacerbation or injury. 10-Not Attempted due to Environmental Limitations-(lack of equipment, weather restraints, etc.). 88-Not Attempted due to Medical Conditions or Safety Concerns. ADL PLOF Comments Pt. 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 He lives in a home that he states "is not built for me." Pt. was independent with daily tasks, but began having increased difficulty with ADL skills prior to his surgery. Pt. began experiencing numbness and severe pain in right LE. Pt. drives and does not use an assistive device. Self Care: Independent Functional Cognition: Independent DME/Equipment: Tub/Shower Occupation: [place] [address] Self: Yes OT Current Status Subjective 5/10 pain in back. Pt. has had pain medication. Appearance Pt. in bed. Alert and oriented. Spouse at bedside. Agrees to work with OT. Mental Status/Objective Patient Orientation: Person, Place, Time, Situation Attachments: IV Current Upper Extremity ROM WFL bilateral UE Upper Extremity Strength NT due to fresh back surgery. ADL-Treatment Eating (QC): 6 Upper Body Dressing (QC): 4 (SBA to don back brace.) Lower Body Dressing (QC): 3 (Per clinical judgement due to pt's inability to bend over and reach feet.) On/Off Footwear (QC): 5 (Pt. is set up with slip on shoes only, as he does not have to bend over. However, would require max assistance with socks or regular shoes.) Toileting Hygiene (QC): 4 (SBA to cleanse self after having BM.) Other Treatments Pt. agrees to work with OT. Transfers supine-sit with SBA. Indicates that he needs to use the bathroom. Pt. is able to don back brace with SBA, and slip on slippers when they are provided on floor. Pt. stands with CGA and ambulates into bathroom. Pt. able to pull down underwear, and sit on toilet with CGA. After toileting, pt. able to cleanse self, but does twist slightly. Dons underwear, and then ambulates with walker approximately [address], with CGA. Pt. indicates that his right LE is "less numb" than before, and that he is feeling better. Pt. states that he is tired. Transfers back to bed. Pt. would like to sit EOB for awhile. Spouse present. OT educates both on back precautions, back safety, and OT goals. Pt. unable to reach feet, and agreeable to learn ADL equipment for LE dressing/bathing at next OT session. OT provides pt. fresh water and coffee. All needs met. Education OT Patient Education: Correct positioning, Modified ADL techniques, Progress toward Goal/Update tx plan, Purpose of tx/functional activities, Reviewed precautions, Rehab process, Transfer techniques Teaching Recipient: Patient Teaching Methods: Demonstration, Discussion Response to Teaching: Verbalize Understanding, Return Demonstration OT Fpc Goals Veneer Stapler Goals Time Frame: Jun 02, 2021 Eating (QC): 6 Oral Hygiene (QC): 6 Toileting Hygiene (QC): 6 Shower/Bathe Self (QC): 5 Upper Body Dressing (QC): 6 Lower Body Dressing (QC): 6 On/Off Footwear (QC): 6 Additional Goals: 1-Demonstrate ADL Tasks, 2-Verbalize Understanding, 3- ImproveStrength/Eyad 1=Demonstrate adherence to instructed precautions during ADL tasks. 2=Patient will verbalize/demonstrate understanding of assistive devices/modifications for ADL. 3=Patient will improve strength/tolerance for activity to enable patient to perform ADL's. OT Education/Plan Problem List/Assessment Assessment: Decreased Activ Tolerance, Impaired Bed Mobility, Impaired Funct Balance, Impaired I ADL's, Impaired Self-Care Skills Discharge Recommendations Plan/Recommendations: Continue POC Equpiment Recommendations-D/C: Hip Kit Treatment Plan/Plan of Care Treatment,Training & Education: Yes Patient would benefit from OT for education, treatment and training to promote independence in ADL's, mobility, safety and/or upper extremity function for ADL's. Plan of Care: ADL Retraining, Functional Mobility, UE Funct Exercise/Act Treatment Duration: Jun 02, 2021 Frequency: 5 times per week Estimated Hrs Per Day: .25 hour per day Agreement: Yes Rehab Potential: Good Time/GCodes Start Time: 10:00 Stop Time: 10:35 Total Time Billed (hr/min): 35 Billed Treatment Time 1, EVM x 15minutes, ADL x 20minutes GALI GREGORY OT May 19, 2021 10:47
[2021-05-19 11:55] VITALS: BP 132/72
--- NOTE | 2021-05-19 12:28 | Progress Note ---
Subjective Date Seen by a Provider: May 19, 2021 Time Seen by a Provider: 12:30 Subjective/Events-last exam Patient doing a lot better No atrial fibrillation noted on telemetry Appreciate cardiology Check meds and labs Bowels are moving at bedside No pain is reported just only taking Tylenol Review of Systems General: Fatigue, Malaise Musculoskeletal: back pain Objective Exam Last Set of Vital Signs Vital Signs Date Time Temp Pulse Resp B/P (MAP) Pulse Ox O2 Delivery O2 Flow Rate FiO2 05/19/21 11:55 36.0 82 20 132/72 (92) 97 Room Air Capillary Refill : I&O Intake and Output 05/19/21 00:00 Intake Total 150 ml Output Total 800 ml Balance -650 ml Intake Oral 150 ml Output Urine Total 800 ml # Voids 1 Daily Weight Change No General: Alert, Oriented X3, Cooperative, No Acute Distress Lungs: Clear to Auscultation, Normal Air Movement Heart: Regular Rate, Normal S1, Normal S2, No Murmurs Psych/Mental Status: Mental Status NL, Mood NL Results Lab Laboratory Tests 05/19/21 05:05: White Blood Count 9.1, Red Blood Count 3.75L, Hemoglobin 12.1L, Hematocrit 37L, Mean Corpuscular Volume 100H, Mean Corpuscular Hemoglobin 32, Mean Corpuscular Hemoglobin Concent 32, Red Cell Distribution Width 13.4, Platelet Count 116L, Mean Platelet Volume 10.6, Immature Granulocyte % (Auto) 1, Neutrophils (%) (Auto) 68, Lymphocytes (%) (Auto) 20, Monocytes (%) (Auto) 9, Eosinophils (%) (Auto) 1, Basophils (%) (Auto) 0, Neutrophils # (Auto) 6.2, Lymphocytes # (Auto) 1.9, Monocytes # (Auto) 0.8, Eosinophils # (Auto) 0.1, Basophils # (Auto) 0.0, Immature Granulocyte # (Auto) 0.1, Percent Immature Platelet Fraction 4.7, Sodium Level 135, Potassium Level 4.1, Chloride Level 103, Carbon Dioxide Level 27, Anion Gap 5, Blood Urea Nitrogen 10, Creatinine 0.84, Estimat Glomerular Filtration Rate 90, BUN/Creatinine Ratio 12, Glucose Level 118H, Calcium Level 8.3L, Corrected Calcium 9.3, Total Bilirubin 0.9, Aspartate Amino Transf (AST/SGOT) 16, Alanine Aminotransferase (ALT/SGPT) 37, Alkaline Phosphatase 48, Total Protein 5.1L, Albumin 2.8L Assessment/Plan Assessment/Plan Assess & Plan/Chief Complaint Assessment: Syncope with cardiac arrhythmia Smoker COPD Severe back pain status post lumbar spine surgery Abdominal aortic aneurysm fusiform infrarenal Plan: Cardiac work-up Telemetry Suspicion for heart disease and sudden cardiac 05/19/2021: Much improved status PT and OT Walk in halls today Gain confidence Needs cardiac nurse specialist at discharge Clinical Quality Measures Admission Status Admission Dx Assessment: Syncope with cardiac arrhythmia Smoker COPD Severe back pain status post lumbar spine surgery Abdominal aortic aneurysm fusiform infrarenal Plan: Cardiac work-up Telemetry Suspicion for heart disease and sudden cardiac TOBIAS GOMES DO May 19, 2021 12:28
[2021-05-19 13:05] LABS: TRIGLYCERIDES 66 MG/DL (<150); VLDL CHOLESTEROL 13 MG/DL (5-40)
--- NOTE | 2021-05-19 13:06 | Physical Therapy Evaluation ---
PT Evaluation-General Medical Diagnosis Admission Date May 18, 2021 at 10:30 Medical Diagnosis: Arrythmia with syncope Onset Date: May 15, 2021 Therapy Diagnosis Therapy Diagnosis: impaired mobility, strength, endurance Precautions Precautions/Isolations: Fall Prevention, Standard Precautions Referral Physician: Cassandra John DO Reason for Referral: Evaluation/Treatment Medical History Additional Medical History Past Medical History Surgeries: Appendectomy, Orthopedic (multiple R knee surgeries, fibula and femur repair ) Asthma Benign Prostatic Hyperpl Current History Patient also had back surgery on the 15 of May, has a back brace to wear when out of bed and back precautions Reviewed History: Yes Social History Home: Single Level Current Living Status: Spouse Entry Into Home: Ramp Prior Prior Level of Function SCALE: Activities may be completed with or without assistive devices. 5-Tztckgnhms-[id number] completes the activity by him/herself with no assistance from a helper. 5-Set-up or Clean-up Assistance-helper sets up or cleans up; patient completes activity. [place] assists only prior to or following the activity. 4-Supervision or Touching Assistance-helper provides verbal cues and/or touching/steadying and/or contact guard assistance as patient completes activity. Assistance may be provided throughout the activity or intermittently. 3-Partial/Moderate Assistance-helper does LESS THAN HALF the effort. [place] lifts, holds or supports trunk or limbs, but provides less than half the effort. 2-Substantial/Maximal Assistance-helper does MORE THAN HALF the effort. [place] lifts or holds trunk or limbs and provides more than half the effort. 8-Ykgqicmos-zasqwr does ALL the effort. Patient does none of the effort to complete the activity. Or, the assistance of 2 or more helpers is required for the patient to complete the activity. If activity was not attempted, code reason: 7-Patient Refused. 9-Not Applicable-not attempted and the patient did not perform the activity before the current illness, exacerbation or injury. 10-Not Attempted due to Environmental Limitations-(lack of equipment, weather restraints, etc.). 88-Not Attempted due to Medical Conditions or Safety Concerns. Bed Mobility: 6 Transfers (B,C,W/C): 6 Gait: 6 Stairs: 6 Indoor Mobility (Ambulation): Independent Stairs: Independent Patient uses a SPC PT Evaluation-Current Subjective Patient in bed pre tx, agrees to PT, has 5/10 pain in back and right leg. Pt/Family Goals to be independent at home Objective Patient Orientation: Person, Place, Situation Attachments: IV back brace ROM/Strength ROM Lower Extremities WNL Strength Lower Extremities LLE (hip flexion 4/5, knee flexion 5/5, knee extension5/5, dorsiflexion 5/5), RLE (hip flexion 3+/5, knee flexion 4/5, knee extension4/5, dorsiflexion 0/5), patient states that he cannot dorsiflex his right foot due to an old injury, has some sensation deficits on the right leg also Sensory Vision: Functional Hearing: Functional Sensation Right Lower Extremit: Impaired Sensation Left Lower Extremity: Intact Transfers Roll Left to Right (QC): 6 Sit to Lying (QC): 3 Lying to Sitting/Side of Bed(Q: 6 Sit to Stand (QC): 4 Chair/Npr-pr-Nikjx Xfer(QC): 4 Gait Does the Patient Walk?: Yes Mode of Locomotion: Walk Anticipated Mode of Locomotion: Walk Walk 10 feet (QC): 4 Walk 50 ft with 2 Turns(QC): 4 Walk 150 ft (QC): 4 Distance: 300' Gait Assistive Device: FWW Comments/Gait Description slow but steady ambulation Balance Sitting Static: Normal Sitting Dynamic: Normal Standing Static: Good Standing Dynamic: Good Treatment supine BLE exercises x20 (AP, cant do on the right side, HS, QS) Assessment/Needs Patient in bed post tx with nurse call, phone, tray, all needs met. Patient SBA with transfers and ambulation but needed min assist for sit to supine. Rehab Potential: Fair PT Non Destructive Evaluation Technician Goals Non Destructive Evaluation Technician Goals PT Non Destructive Evaluation Technician Goals Time Frame: May 26, 2021 Roll Left & Right (QC): 6 Sit to Lying (QC): 6 Lying-Sitting on Side/Bed(QC): 6 Sit to Stand (QC): 6 Chair/Gae-cp-Ifgee Xfer(QC): 6 Walk 10 feet (QC): 6 Walk 50ft with 2 Turns (QC): 6 Walk 150 ft (QC): 6 PT Plan Problem List Problem List: Activity Tolerance, Functional Strength, Safety, Balance, Gait, Transfer, Bed Mobility, ROM Treatment/Plan Treatment Plan: Continue Plan of Care Treatment Plan: Bed Mobility, Education, Functional Activity Eyad, Functional Strength, Gait, Safety, Therapeutic Exercise, Transfers Treatment Duration: May 26, 2021 Frequency: 6 times per week Estimated Hrs Per Day: .25 hour per day Patient and/or Family Agrees t: Yes Safety Risks/Education Patient Education: Gait Training, Transfer Techniques, Reviewed Precautions, Correct Positioning, Reviewed Don/Doff Brace, Safety Issues Teaching Recipient: Patient Teaching Methods: Demonstration, Discussion Response to Teaching: Reinforcement Needed Discharge Recommendations Plan Patient will perform bed mobility and transfer training, balance and endurance training, functional strengthening, gait training, and education, to improve functional mobility and independence at home. Therapy Discharge Recommendati: Home & Family, Post Acute PT Time/GCodes Time In: 1225 Time Out: 1245 Total Billed Treatment Time: 20 Total Billed Treatment 1 visit CARLA 20' ERIN JULIAN PT May 19, 2021 13:06
[2021-05-19 13:10] LABS: CHOLESTEROL 134 MG/DL (< 200)
[2021-05-19 13:11] LABS: HDL CHOLESTEROL 55 MG/DL (40-60)
--- NOTE | 2021-05-19 13:11 | Cardiology Progress Note ---
Progress Note-Cardiology Events since last exam Date Seen by Provider: May 19, 2021 Time Seen by Provider: 13:09 Events since last exam We are seeing him due to dizziness and supraventricular ectopy. He states he feels much better today. His back pain is markedly improved. He walked in the james without difficulty. He denies chest discomfort, dyspnea, palpitations, syncope, or ankle edema. Certain portions of this document may have been dictated utilizing voice recognition technology. Inherent to this technology, typographical and grammatical errors may exist. As much as I am diligent to identify and correct these mistakes, some errors may remain in the document. Vitals Last set of Vitals Signs Vital Signs 05/19/21 05/19/21 11:55 13:00 Temp 36.0 Pulse 75 Resp 20 B/P (MAP) 132/72 (92) Pulse Ox 97 O2 Delivery Room Air Labs Labs Laboratory Tests 05/19/21 05:05 Exam Vital Signs Vital Signs Date Time Temp Pulse Resp B/P (MAP) Pulse Ox O2 Delivery O2 Flow Rate FiO2 05/19/21 13:00 75 05/19/21 11:55 36.0 20 132/72 (92) 97 Room Air Physical Exam General: Alert. No acute distress. He is obese. Eye: No xanthelasma. HENT: Normocephalic. Neck: Jugular venous pressure does not appear elevated. Respiratory: Lungs are clear to auscultation. Respirations are non-labored. Breath sounds are equal. Symmetrical chest wall expansion. Cardiovascular: Normal rate. Regular rhythm. No murmur. No gallop. No edema. Gastrointestinal: Soft. Normal bowel sounds. Skin: Warm. Dry. Neurologic: Alert and oriented to person, place, time. Cranial nerves 3-11 grossly intact. Psychiatric: Cooperative. Appropriate mood & affect. Labs Laboratory Tests Test 05/19/21 05:05 Range/Units White Blood Count 9.1 4.3-11.0 10^3/uL Red Blood Count 3.75 L 4.30-5.52 10^6/uL Hemoglobin 12.1 L 13.3-17.7 g/dL Hematocrit 37 L 40-54 % Mean Corpuscular Volume 100 H 80-99 fL Mean Corpuscular Hemoglobin 32 25-34 pg Mean Corpuscular Hemoglobin Concent 32 32-36 g/dL Red Cell Distribution Width 13.4 10.0-14.5 % Platelet Count 116 L 130-400 10^3/uL Mean Platelet Volume 10.6 9.0-12.2 fL Immature Granulocyte % (Auto) 1 % Neutrophils (%) (Auto) 68 42-75 % Lymphocytes (%) (Auto) 20 12-44 % Monocytes (%) (Auto) 9 0-12 % Eosinophils (%) (Auto) 1 0-10 % Basophils (%) (Auto) 0 0-10 % Neutrophils # (Auto) 6.2 1.8-7.8 10^3/uL Lymphocytes # (Auto) 1.9 1.0-4.0 10^3/uL Monocytes # (Auto) 0.8 0.0-1.0 10^3/uL Eosinophils # (Auto) 0.1 0.0-0.3 10^3/uL Basophils # (Auto) 0.0 0.0-0.1 10^3/uL Immature Granulocyte # (Auto) 0.1 0.0-0.1 10^3/uL Percent Immature Platelet Fraction 4.7 0.0-7.6 % Sodium Level 135 135-145 MMOL/L Potassium Level 4.1 3.6-5.0 MMOL/L Chloride Level 103 98-107 MMOL/L Carbon Dioxide Level 27 21-32 MMOL/L Anion Gap 5 5-14 MMOL/L Blood Urea Nitrogen 10 7-18 MG/DL Creatinine 0.84 0.60-1.30 MG/DL Estimat Glomerular Filtration Rate 90 BUN/Creatinine Ratio 12 Glucose Level 118 H 70-105 MG/DL Calcium Level 8.3 L 8.5-10.1 MG/DL Corrected Calcium 9.3 8.5-10.1 MG/DL Total Bilirubin 0.9 0.1-1.0 MG/DL Aspartate Amino Transf (AST/SGOT) 16 5-34 U/L Alanine Aminotransferase (ALT/SGPT) 37 0-55 U/L Alkaline Phosphatase 48 40-136 U/L Total Protein 5.1 L 6.4-8.2 GM/DL Albumin 2.8 L 3.2-4.5 GM/DL Triglycerides Level 66 <150 MG/DL Cholesterol Level 134 < 200 MG/DL LDL Cholesterol Direct 59 1-129 MG/DL VLDL Cholesterol 13 5-40 MG/DL HDL Cholesterol 55 40-60 MG/DL Diagnosis/Problems Diagnosis/Problems (1) Lightheaded Assessment & Plan: Etiology unclear. There is no structural heart disease on his echocardiogram from this admission to explain the lightheadedness. He was lightheaded when he had severe back pain. He may have been having a vagal episode. I have not received any reports from telemetry about significant arrhythmias. I would recommend he continue on the telemetry while an inpatient. If the container washer does not reveal any significant arrhythmias to explain lightheadedness, then we may want to consider a more prolonged external cooperative education coordinator after discharge. (2) Abdominal aortic aneurysm Assessment & Plan: This was noted on an outside CT scan. This is in a mild range but will need to be followed longitudinally. (3) Premature supraventricular beats Assessment & Plan: His electrocardiogram from admission showed occasional premature supraventricular complexes. His electrocardiogram from the outside hospital showed frequent premature supraventricular complexes. His TSH level is normal. He does not have known chronic obstructive pulmonary disease and does not take any medications that would cause supraventricular arrhythmias. As above, his echocardiogram is unremarkable. I suspect this is a benign condition. However, in light of his dizzy spells, I will probably have him undergo a 30-day event recorder after discharge. (4) Cigarette smoker Assessment & Plan: The patient needs to quit smoking to help reduce the incidence of medical problems related to tobacco use. (5) Obesity Assessment & Plan: He needs to work on weight loss. This may help with his recovery from surgery and ongoing issues with back pain. Problem Qualifiers (1) Obesity: Body mass index: BMI 33.0-33.9 KEYUR FAITH JR, MD May 19, 2021 13:11
[2021-05-19 16:00] VITALS: BP 120/79
[2021-05-19 20:00] VITALS: BP 127/67
[2021-05-19] MEDS: MELATONIN 3 MG TABLET PO PRN (20:45)
[2021-05-19] MEDS ORDERED: HYDROmorphone 2 MG/ML VIAL (DILAUDID) ONE (20:59)
[2021-05-19] MEDS: HYDROmorphone 2 MG/ML VIAL (DILAUDID) IVP PRN (21:05)
[2021-05-20] VITALS: BP 112/50
[2021-05-20] MEDS: HYDROcodone/APAP 5 MG/325 MG (LORTAB) TAB PO PRN ×3 (01:14→14:07)
[2021-05-20] MEDS: HYDROmorphone 2 MG/ML VIAL (DILAUDID) IVP PRN ×2 (02:56→08:23)
[2021-05-20 04:20] VITALS: BP 101/64
[2021-05-20 05:12] LABS: BASOPHILS % (AUTO) 0 % (0-10); MEAN CORPUSCULAR VOLUME 98 fL (80-99)
[2021-05-20 05:15] LABS: EOSINOPHILS # (AUTO) 0.1 10^3/uL (0.0-0.3); EOSINOPHILS % (AUTO) 1 % (0-10); HEMATOCRIT 39 % (40-54); HEMOGLOBIN 12.8 g/dL (13.3-17.7); LYMPHOCYTES # (AUTO) 2.2 10^3/uL (1.0-4.0); LYMPHOCYTES % (AUTO) 21 % (12-44); MEAN CORPUSCULAR HEMOGLOBIN 33 pg (25-34); MEAN CORPUSCULAR HGB CONC 33 g/dL (32-36); MEAN PLATELET VOLUME 10.3 fL (9.0-12.2); MONOCYTES # (AUTO) 1.1 10^3/uL (0.0-1.0); MONOCYTES % (AUTO) 10 % (0-12); NEUTROPHILS # (AUTO) 6.7 10^3/uL (1.8-7.8); NEUTROPHILS % (AUTO) 66 % (42-75); PLATELET COUNT 132 10^3/uL (130-400); WHITE BLOOD COUNT 10.2 10^3/uL (4.3-11.0)
[2021-05-20 05:22] LABS: ALBUMIN 3.1 GM/DL (3.2-4.5)
[2021-05-20 05:23] LABS: POTASSIUM 4.3 MMOL/L (3.6-5.0)
[2021-05-20 05:24] LABS: CALCIUM 8.6 MG/DL (8.5-10.1)
[2021-05-20 05:25] LABS: TOTAL PROTEIN 5.7 GM/DL (6.4-8.2)
[2021-05-20 05:29] LABS: CREATININE SERUM 0.82 MG/DL (0.60-1.30)
[2021-05-20 07:57] VITALS: BP 113/69
[2021-05-20] MEDS: SENNA W/DOCUSATE (SENOKOT S) TABLET PO SCH (08:22)
[2021-05-20 11:32] VITALS: BP 123/62
--- NOTE | 2021-05-20 12:12 | Cardiology Progress Note ---
Progress Note-Cardiology Events since last exam Date Seen by Provider: May 20, 2021 Time Seen by Provider: 12:11 Events since last exam We are seeing him due to dizziness and supraventricular ectopy. Last evening his back started hurting him more again. He felt somewhat better this morning and was able to get up and take a shower with assistance. He denies recurrent dizziness. He denies chest discomfort, dyspnea, syncope, or ankle edema. Certain portions of this document may have been dictated utilizing voice recognition technology. Inherent to this technology, typographical and grammatical errors may exist. As much as I am diligent to identify and correct these mistakes, some errors may remain in the document. Vitals Last set of Vitals Signs Vital Signs 05/20/21 05/20/21 05/20/21 07:57 11:32 13:00 Temp 36.5 Pulse 84 Resp 18 B/P (MAP) 123/62 (82) Pulse Ox 97 O2 Delivery Room Air O2 Flow Rate 2.00 Labs Labs Laboratory Tests 05/20/21 04:45 Exam Vital Signs Vital Signs Date Time Temp Pulse Resp B/P (MAP) Pulse Ox O2 Delivery O2 Flow Rate FiO2 05/20/21 13:00 84 05/20/21 11:32 36.5 18 123/62 (82) 97 Room Air 05/20/21 07:57 2.00 Physical Exam General: Alert. No acute distress. Eye: No xanthelasma. HENT: Normocephalic. Neck: Jugular venous pressure does not appear elevated. Respiratory: Lungs are clear to auscultation. Respirations are non-labored. Breath sounds are equal. Symmetrical chest wall expansion. Cardiovascular: Normal rate. Regular rhythm. No murmur. No gallop. No edema. Gastrointestinal: Soft. Normal bowel sounds. Skin: Warm. Dry. Neurologic: Alert and oriented to person, place, time. Cranial nerves 3-11 grossly intact. Psychiatric: Cooperative. Appropriate mood & affect. Labs Laboratory Tests Test 05/20/21 04:45 Range/Units White Blood Count 10.2 4.3-11.0 10^3/uL Red Blood Count 3.94 L 4.30-5.52 10^6/uL Hemoglobin 12.8 L 13.3-17.7 g/dL Hematocrit 39 L 40-54 % Mean Corpuscular Volume 98 80-99 fL Mean Corpuscular Hemoglobin 33 25-34 pg Mean Corpuscular Hemoglobin Concent 33 32-36 g/dL Red Cell Distribution Width 13.2 10.0-14.5 % Platelet Count 132 130-400 10^3/uL Mean Platelet Volume 10.3 9.0-12.2 fL Immature Granulocyte % (Auto) 1 % Neutrophils (%) (Auto) 66 42-75 % Lymphocytes (%) (Auto) 21 12-44 % Monocytes (%) (Auto) 10 0-12 % Eosinophils (%) (Auto) 1 0-10 % Basophils (%) (Auto) 0 0-10 % Neutrophils # (Auto) 6.7 1.8-7.8 10^3/uL Lymphocytes # (Auto) 2.2 1.0-4.0 10^3/uL Monocytes # (Auto) 1.1 H 0.0-1.0 10^3/uL Eosinophils # (Auto) 0.1 0.0-0.3 10^3/uL Basophils # (Auto) 0.0 0.0-0.1 10^3/uL Immature Granulocyte # (Auto) 0.1 0.0-0.1 10^3/uL Percent Immature Platelet Fraction 4.6 0.0-7.6 % Sodium Level 138 135-145 MMOL/L Potassium Level 4.3 3.6-5.0 MMOL/L Chloride Level 103 98-107 MMOL/L Carbon Dioxide Level 22 21-32 MMOL/L Anion Gap 13 5-14 MMOL/L Blood Urea Nitrogen 10 7-18 MG/DL Creatinine 0.82 0.60-1.30 MG/DL Estimat Glomerular Filtration Rate 92 BUN/Creatinine Ratio 12 Glucose Level 107 H 70-105 MG/DL Calcium Level 8.6 8.5-10.1 MG/DL Corrected Calcium 9.3 8.5-10.1 MG/DL Total Bilirubin 1.0 0.1-1.0 MG/DL Aspartate Amino Transf (AST/SGOT) 14 5-34 U/L Alanine Aminotransferase (ALT/SGPT) 33 0-55 U/L Alkaline Phosphatase 49 40-136 U/L Total Protein 5.7 L 6.4-8.2 GM/DL Albumin 3.1 L 3.2-4.5 GM/DL Diagnosis/Problems Diagnosis/Problems (1) Lightheaded Assessment & Plan: Etiology unclear. There is no structural heart disease on his echocardiogram from this admission to explain the lightheadedness. He was lightheaded when he had severe back pain. He may have been having a vagal episode. I have not received any reports from telemetry about significant arrhythmias. I would recommend he continue on the telemetry while an inpatient. I recommend further evaluation with a 30-day event monitor after discharge. I will have my office arrange for this after he goes home. I will plan to see him in the office a couple of weeks after the monitor is completed. At this point in time, there do not appear to be any acute, active cardiac issues. As such, cardiology will sign off. Please call if you have other questions or concerns. (2) Abdominal aortic aneurysm Assessment & Plan: This was noted on an outside CT scan. This is in a mild range but will need to be followed longitudinally. I should note, his cholesterol level is under very good control on no medication. (3) Premature supraventricular beats Assessment & Plan: His electrocardiogram from admission showed occasional premature supraventricular complexes. His electrocardiogram from the outside hospital showed frequent premature supraventricular complexes. His TSH level is normal. He does not have known chronic obstructive pulmonary disease and does not take any medications that would cause supraventricular arrhythmias. As above, his echocardiogram is unremarkable. I suspect this is a benign condition. However, in light of his dizzy spells, I will have him undergo a 30- day event recorder after discharge as outlined above. (4) Cigarette smoker Assessment & Plan: The patient needs to quit smoking to help reduce the incidence of medical problems related to tobacco use. (5) Obesity Assessment & Plan: He needs to work on weight loss. This may help with his recovery from surgery and ongoing issues with back pain. Problem Qualifiers (1) Obesity: Body mass index: BMI 33.0-33.9 KEYUR FAITH JR, MD May 20, 2021 12:12
[2021-05-20] MEDS ORDERED: OXC5T PO (12:45)
[2021-05-20] MEDS ORDERED: HYDR4TAB49 PO (12:45)
--- NOTE | 2021-05-20 12:47 | Discharge Summary ---
Diagnosis/Chief Complaint Date of Admission May 18, 2021 at 10:30 Date of Discharge Discharge Date: May 20, 2021 Discharge Diagnosis Assessment: Syncope with cardiac arrhythmia Smoker COPD Severe back pain status post lumbar spine surgery Abdominal aortic aneurysm fusiform infrarenal Plan: Cardiac work-up Telemetry Suspicion for heart disease and sudden cardiac Reason Hospital Visit CC: Syncope with cardiac arrhythmia HPI: This is a male pt who was transferred from [facility] after lumbar spine surgery earlier in the week who presented to [facility] for cardiac arrhythmia. Apparently he was up walking with PT and had a syncopal episode. EKG showed PACs and sinus arrhythmia. Due to the fact he had a recent diagnosis of an abdominal aneurysm he was assessed to be high risk for multi vessel disease and sudden cardiac so he was moved and cardiology Dr. Carreon will evaluate echo cardiogram and EKD and evaluate for any acute issues. He has had a long and very slow recovery from back surgery. Discharge Summary Discharge Physical Examination Allergies: Coded Allergies: Penicillins (Verified Allergy, Unknown, 05/03/21) Vitals & I&Os Vital Signs Date Time Temp Pulse Resp B/P (MAP) Pulse Ox O2 Delivery O2 Flow Rate FiO2 05/20/21 14:10 05/20/21 13:00 84 05/20/21 11:32 36.5 18 97 Room Air 05/20/21 07:57 2.00 General Appearance: Alert, Oriented X3, Cooperative Respiratory: Clear to Auscultation Cardiovascular: Regular Rate Neuro: Strength at 5/5 X4 Ext Psych/Mental Status: Mental Status NL Hospital Course Was the Problem List Reviewed?: Yes Lengthy hospital course after he was moved from [facility] due to syncopal episode with arrhythmia on EKG. He had had a long hospital course due to back pain requiring surgery per Dr. ANDERSON. He was recovering and walking with physical therapy had a syncopal episode and was found to have PACs and sinus arrhythmia in need of cardiac risk ratification before discharge home. Dr. Carreon was consulted patient was maintained on telemetry EKG's was evaluated and echocardiogram initiated. Overall he had no signs of fatal arrhythmia but he will need further cardiac risk ratification by Dr. Carreon as an outpatient he was discharged in improved condition although he was still having pain this was expected after surgery and tried to reassure and tried to help his self- confidence and he was reluctant but agreeable to discharge. Labs (last 24 hrs) Laboratory Tests 05/18/21 11:50: White Blood Count 10.8, Red Blood Count 4.29L, Hemoglobin 13.9, Hematocrit 42, Mean Corpuscular Volume 98, Mean Corpuscular Hemoglobin 32, Mean Corpuscular Hemoglobin Concent 33, Red Cell Distribution Width 13.4, Platelet Count 127L, Mean Platelet Volume 10.1, Immature Granulocyte % (Auto) 2, Neutrophils (%) (Auto) 71, Lymphocytes (%) (Auto) 17, Monocytes (%) (Auto) 10, Eosinophils (%) (Auto) 0, Basophils (%) (Auto) 0, Neutrophils # (Auto) 7.7, Lymphocytes # (Auto) 1.8, Monocytes # (Auto) 1.1H, Eosinophils # (Auto) 0.0, Basophils # (Auto) 0.0, Immature Granulocyte # (Auto) 0.2H, Percent Immature Platelet Fraction 4.2, Sodium Level 134L, Potassium Level 4.1, Chloride Level 102, Carbon Dioxide Level 25, Anion Gap 7, Blood Urea Nitrogen 10, Creatinine 0.84, Estimat Glomerular Filtration Rate 90, BUN/Creatinine Ratio 12, Glucose Level 119H, Calcium Level 8.5, Corrected Calcium 9.1, Total Bilirubin 0.8, Aspartate Amino Transf (AST/SGOT) 15, Alanine Aminotransferase (ALT/SGPT) 39, Alkaline Phosphatase 52, Troponin I < 0.028, B-Type Natriuretic Peptide 83.2, Total Protein 5.7L, Albumin 3.2, Thyroid Stimulating Hormone (TSH) 1.91 05/19/21 05:05: White Blood Count 9.1, Red Blood Count 3.75L, Hemoglobin 12.1L, Hematocrit 37L, Mean Corpuscular Volume 100H, Mean Corpuscular Hemoglobin 32, Mean Corpuscular Hemoglobin Concent 32, Red Cell Distribution Width 13.4, Platelet Count 116L, Mean Platelet Volume 10.6, Immature Granulocyte % (Auto) 1, Neutrophils (%) (A uto) 68, Lymphocytes (%) (Auto) 20, Monocytes (%) (Auto) 9, Eosinophils (%) (Auto) 1, Basophils (%) (Auto) 0, Neutrophils # (Auto) 6.2, Lymphocytes # (Auto) 1.9, Monocytes # (Auto) 0.8, Eosinophils # (Auto) 0.1, Basophils # (Auto) 0.0, Immature Granulocyte # (Auto) 0.1, Percent Immature Platelet Fraction 4.7, Sodium Level 135, Potassium Level 4.1, Chloride Level 103, Carbon Dioxide Level 27, Anion Gap 5, Blood Urea Nitrogen 10, Creatinine 0.84, Estimat Glomerular Filtration Rate 90, BUN/Creatinine Ratio 12, Glucose Level 118H, Calcium Level 8.3L, Corrected Calcium 9.3, Total Bilirubin 0.9, Aspartate Amino Transf (AST/SGOT) 16, Alanine Aminotransferase (ALT/SGPT) 37, Alkaline Phosphatase 48, Total Protein 5.1L, Albumin 2.8L, Triglycerides Level 66, Cholesterol Level 134, LDL Cholesterol Direct 59, VLDL Cholesterol 13, HDL Cholesterol 55 05/20/21 04:45: White Blood Count 10.2, Red Blood Count 3.94L, Hemoglobin 12.8L, Hematocrit 39L, Mean Corpuscular Volume 98, Mean Corpuscular Hemoglobin 33, Mean Corpuscular Hemoglobin Concent 33, Red Cell Distribution Width 13.2, Platelet Count 132, Mean Platelet Volume 10.3, Immature Granulocyte % (Auto) 1, Neutrophils (%) (Auto) 66, Lymphocytes (%) (Auto) 21, Monocytes (%) (Auto) 10, Eosinophils (%) (Auto) 1, Basophils (%) (Auto) 0, Neutrophils # (Auto) 6.7, Lymphocytes # (Auto) 2.2, Monocytes # (Auto) 1.1H, Eosinophils # (Auto) 0.1, Basophils # (Auto) 0.0, Immature Granulocyte # (Auto) 0.1, Percent Immature Platelet Fraction 4.6, Sodium Level 138, Potassium Level 4.3, Chloride Level 103, Carbon Dioxide Level 22, Anion Gap 13, Blood Urea Nitrogen 10, Creatinine 0.82, Estimat Glomerular Filtration Rate 92, BUN/Creatinine Ratio 12, Glucose Level 107H, Calcium Level 8.6, Corrected Calcium 9.3, Total Bilirubin 1.0, Aspartate Amino Transf (AST/SGOT) 14, Alanine Aminotransferase (ALT/SGPT) 33, Alkaline Phosphatase 49, Total Protein 5.7L, Albumin 3.1L Pending Labs Laboratory Tests 05/18/21 11:50: White Blood Count 10.8, Red Blood Count 4.29, Hemoglobin 13.9, Hematocrit 42, Mean Corpuscular Volume 98, Mean Corpuscular Hemoglobin 32, Mean Corpuscular Hemoglobin Concent 33, Red Cell Distribution Width 13.4, Platelet Count 127, Mean Platelet Volume 10.1, Immature Granulocyte % (Auto) 2, Neutrophils (%) (Auto) 71, Lymphocytes (%) (Auto) 17, Monocytes (%) (Auto) 10, Eosinophils (%) (Auto) 0, Basophils (%) (Auto) 0, Neutrophils # (Auto) 7.7, Lymphocytes # (Auto) 1.8, Monocytes # (Auto) 1.1, Eosinophils # (Auto) 0.0, Basophils # (Auto) 0.0, Immature Granulocyte # (Auto) 0.2, Percent Immature Platelet Fraction 4.2, Sodium Level 134, Potassium Level 4.1, Chloride Level 102, Carbon Dioxide Level 25, Anion Gap 7, Blood Urea Nitrogen 10, Creatinine 0.84, Estimat Glomerular Filtration Rate 90, BUN/Creatinine Ratio 12, Glucose Level 119, Calcium Level 8.5, Corrected Calcium 9.1, Total Bilirubin 0.8, Aspartate Amino Transf (AST/SGOT) 15, Alanine Aminotransferase (ALT/SGPT) 39, Alkaline Phosphatase 52, Troponin I < 0.028, B-Type Natriuretic Peptide 83.2, Total Protein 5.7, Albumin 3.2, Thyroid Stimulating Hormone (TSH) 1.91 05/19/21 05:05: White Blood Count 9.1, Red Blood Count 3.75, Hemoglobin 12.1, Hematocrit 37, Mean Corpuscular Volume 100, Mean Corpuscular Hemoglobin 32, Mean Corpuscular Hemoglobin Concent 32, Red Cell Distribution Width 13.4, Platelet Count 116, Mean Platelet Volume 10.6, Immature Granulocyte % (Auto) 1, Neutrophils (%) (Auto) 68, Lymphocytes (%) (Auto) 20, Monocytes (%) (Auto) 9, Eosinophils (%) (Auto) 1, Basophils (%) (Auto) 0, Neutrophils # (Auto) 6.2, Lymphocytes # (Auto) 1.9, Monocytes # (Auto) 0.8, Eosinophils # (Auto) 0.1, Basophils # (Auto) 0.0, Immature Granulocyte # (Auto) 0.1, Percent Immature Platelet Fraction 4.7, Sodium Level 135, Potassium Level 4.1, Chloride Level 103, Carbon Dioxide Level 27, Anion Gap 5, Blood Urea Nitrogen 10, Creatinine 0.84, Estimat Glomerular Filtration Rate 90, BUN/Creatinine Ratio 12, Glucose Level 118, Calcium Level 8.3, Corrected Calcium 9.3, Total Bilirubin 0.9, Aspartate Amino Transf ( AST/SGOT) 16, Alanine Aminotransferase (ALT/SGPT) 37, Alkaline Phosphatase 48, Total Protein 5.1, Albumin 2.8, Triglycerides Level 66, Cholesterol Level 134, LDL Cholesterol Direct 59, VLDL Cholesterol 13, HDL Cholesterol 55 05/20/21 04:45: White Blood Count 10.2, Red Blood Count 3.94, Hemoglobin 12.8, Hematocrit 39, Mean Corpuscular Volume 98, Mean Corpuscular Hemoglobin 33, Mean Corpuscular Hemoglobin Concent 33, Red Cell Distribution Width 13.2, Platelet Count 132, Mean Platelet Volume 10.3, Immature Granulocyte % (Auto) 1, Neutrophils (%) (Auto) 66, Lymphocytes (%) (Auto) 21, Monocytes (%) (Auto) 10, Eosinophils (%) (Auto) 1, Basophils (%) (Auto) 0, Neutrophils # (Auto) 6.7, Lymphocytes # (Auto) 2.2, Monocytes # (Auto) 1.1, Eosinophils # (Auto) 0.1, Basophils # (Auto) 0.0, Immature Granulocyte # (Auto) 0.1, Percent Immature Platelet Fraction 4.6, Sodium Level 138, Potassium Level 4.3, Chloride Level 103, Carbon Dioxide Level 22, Anion Gap 13, Blood Urea Nitrogen 10, Creatinine 0.82, Estimat Glomerular Filtration Rate 92, BUN/Creatinine Ratio 12, Glucose Level 107, Calcium Level 8.6, Corrected Calcium 9.3, Total Bilirubin 1.0, Aspartate Amino Transf (AST/SGOT) 14, Alanine Aminotransferase (ALT/SGPT) 33, Alkaline Phosphatase 49, Total Protein 5.7, Albumin 3.1 Discharge Home Medications: Active Scripts Active Dilaudid (Hydromorphone HCl) 4 Mg Tablet 4 Mg PO HS Oxyir Tablet (Oxycodone HCl) 5 Mg Tab 10 Mg PO TID PRN Instructions to patient/family Please see electronic discharge instructions given to patient. TOBIAS GOMES DO May 20, 2021 12:47
== END 2021-05-20 14:10 | disposition home or self-care (01) | DRG 310 ==
LOC: 4TH 10:30
PROVIDERS: ADMIT Internal Medicine; ATTEND Internal Medicine
DX: I47.1 Supraventricular tachycardia (principal); I49.3 Ventricular premature depolarization; J44.9 Chronic obstructive pulmonary disease, unspecified; R55 Syncope and collapse; N40.0 Benign prostatic hyperplasia without lower urinary tract symptoms; M25.561 Pain in right knee; R26.89 Other abnormalities of gait and mobility; I71.4 Abdominal aortic aneurysm, without rupture; E66.9 Obesity, unspecified; Z68.33 Body mass index [BMI] 33.0-33.9, adult; F17.210 Nicotine dependence, cigarettes, uncomplicated; Z88.0 Allergy status to penicillin
CPT/HCPCS: 36415; 71045; 80053; 80061; 83880; 84443; 84484; 85025; 93005; 93306

== ENCOUNTER → 2021-11-07 | Outpatient (CLI) | payer MEDICARE, OTHER ==
[~2021-11-07] MED LIST: HYDR4TAB49 PO; OXC5T PO
--- NOTE | 2021-11-07 13:52 | Diagnostic Imaging Report ---
PROCEDURE: CT head without contrast. TECHNIQUE: Multiple contiguous axial images were obtained through the brain without the use of intravenous contrast. Auto Exposure Controls were utilized during the CT exam to meet ALARA standards for radiation dose reduction. INDICATION: 75-year-old male with right asymmetric hearing loss. COMPARISON: None. FINDINGS: The midline structures are not displaced. The lateral, 3rd, and 4th ventricles are normal in size, shape, and anatomic position. There is no mass, mass effect, hydrocephalus, or hemorrhage. Mahmood-white differentiation is normal. There is no sulcal effacement. There are no abnormal extra-axial fluid collections or hemorrhage. The sinuses appear well pneumatized. There is fluid in the right mastoid air cells. The orbits are unremarkable. IMPRESSION: 1. There is some fluid seen in the right mastoid air cells. The right external auditory canal and middle ear canal are unremarkable. 2. Mild age-appropriate senescent changes of the brain; otherwise, no acute finding is identified by nonenhanced CT criteria. 3. Additional nonemergent findings as described above. Dictated by: Dictated on workstation # [id number]
== END ==
LOC: RAD FS 13:10
PROVIDERS: ATTEND Otolaryngology Otolaryngology/Facial Plastic Surgery
DX: G31.89 Other specified degenerative diseases of nervous system (principal); H90.41 Sensorineural hearing loss, unilateral, right ear, with unrestricted hearing on the contralateral side
CPT/HCPCS: 70450

== ENCOUNTER → 2021-11-07 | Outpatient (CLI) | payer MEDICARE, OTHER ==
--- NOTE | 2021-11-07 13:53 | Diagnostic Imaging Report ---
PROCEDURE: CT lumbar spine without contrast. TECHNIQUE: Multiple contiguous axial images were obtained through the lumbar spine without the use of intravenous contrast. Sagittal and coronal reformations were then performed. Auto Exposure Controls were utilized during the CT exam to meet ALARA standards for radiation dose reduction. INDICATION: Back pain. History of prior L-spine fusion. COMPARISON: 05/03/2021. FINDINGS: No acute fracture or dislocation is seen in the lumbar spine. Prior posterior fusion changes are seen from L4 to S1 with bipedicle screws and fusion rods. No hardware fracture or loosening. Laminectomy changes are visualized from L4 to L5. There is slight left convexity curvature of the lumbar spine centered at the L2 level. No focal osseous lesions are seen. Chronic height loss is visualized in the L1 vertebral body. Degenerative changes are present in the lumbar spine with marginal osteophytes, disc bulges, and buckling of the ligamentum flavum. These are greatest at the L1-L2 level with moderate spinal canal stenosis and moderate bilateral foraminal stenosis. An infrarenal abdominal aortic aneurysm is partially characterized on this exam. The paraspinal soft tissues are unremarkable. IMPRESSION: 1. No acute fracture or dislocation in the lumbar spine. 2. Posterior fusion changes from L4 to S1. No hardware fracture or loosening. 3. Infrarenal abdominal aortic aneurysm which is only partially characterized on this exam. Recommend dedicated followup with CTA of the abdomen and pelvis. 4. Multilevel degenerative changes in the lumbar spine, greatest at L1-L2. Dictated by: Dictated on workstation # [id number]
== END ==
LOC: RAD FS 13:16
PROVIDERS: ATTEND Orthopaedic Surgery Orthopaedic Surgery of the Spine
DX: M47.816 Spondylosis without myelopathy or radiculopathy, lumbar region (principal); I71.4 Abdominal aortic aneurysm, without rupture; Z98.1 Arthrodesis status
CPT/HCPCS: 72131

== ENCOUNTER 2023-02-12 14:54 | Emergency (ER) | payer MEDICARE ==
[~2023-02-12] VITALS: Ht 178 cm; Wt 113.4 kg
[2023-02-12 15:00] VITALS: BP 154/62
[2023-02-12] MEDS ORDERED: CEPHALEXIN 250 MG (KEFLEX) CAP PO STA (15:23)
--- NOTE | 2023-02-12 15:24 | ED Lower Extremity ---
General Chief Complaint: Lower Extremity Stated Complaint: RT ANKLE RASH Source: patient, RN/MD Exam Limitations: no limitations History of Present Illness Date Seen by Provider: February 12, 2023 Time Seen by Provider: 14:57 Initial Comments 77-year-old male that had knee replacement surgery on his right lower extremity a couple weeks ago by Dr. Aguilar coming in as a referral for concerns for DVT versus cellulitis. The patient had some redness noticing on . Was started on doxycycline by his physician yesterday. His orthopedic provider wanted him checked out for a DVT today. He is denying any chest pain, shortness of breath, fever, or any other concerns. He is only having very mild pain that feels like a stinging sensation. Allergies and Home Medications Allergies Coded Allergies: Penicillins (Verified Allergy, Unknown, 05/03/21) Patient Home Medication List Home Medication List Reviewed: Yes Cephalexin (Cephalexin) 500 Mg Tablet, 500 MG PO QID Prescribed by: ROBIN ESCOBAR on 02/12/23 1533 Hydromorphone HCl (Dilaudid) 4 Mg Tablet, 4 MG PO HS Prescribed by: TOBIAS GOMES on 05/20/21 1245 Oxycodone Hcl (Oxyir Tablet) 5 Mg Tab, 10 MG PO TID PRN for PAIN-MODERATE (5-7) Prescribed by: TOBIAS GOMES on 05/20/21 1245 Review of Systems Constitutional: No fever EENTM: no symptoms reported Respiratory: no symptoms reported Cardiovascular: no symptoms reported Gastrointestinal: no symptoms reported Genitourinary: no symptoms reported Skin: see HPI Past Joeeijr-Ovsjra-Jzanqf Hx Patient Social History Tobacco Use?: No Use of E-Cig and/or Vaping dev: No Substance use?: No Alcohol Use?: No Immunizations Up To Date Influenza Vaccine Up-to-Date: No; Not Current First/Initial COVID19 Vaccinat: NOT VACC Seasonal Allergies Seasonal Allergies: Yes Past Medical History Surgeries: Yes Appendectomy, Orthopedic Asthma, COPD Benign Prostatic Hyperpl Chronic Back Pain Family Medical History COPD Physical Exam Vital Signs Vital Signs - First Documented 02/12/23 15:00 Temp 36.3 Pulse 110 Resp 16 B/P (MAP) 154/62 (92) Pulse Ox 100 O2 Delivery Room Air Capillary Refill : Height, Weight, BMI Height: '" Weight: lbs. oz. kg; 33.34 BMI Method: General Appearance: WD/WN, no apparent distress HEENT: PERRL/EOMI, normal ENT inspection, pharynx normal Neck: non-tender, full range of motion, supple, normal inspection Cardiovascular: regular rate, rhythm Respiratory: chest non-tender, lungs clear, normal breath sounds, no r espiratory distress, no accessory muscle use Gastrointestinal: normal bowel sounds, non tender, soft; No distended, No guarding Knees: right knee other (Right knee surgical wound clean, dry, intact, healing well, right hammond with some mild erythema, no calf tenderness) Neurologic/Tendon: normal sensation, normal motor functions, normal tendon functions Neurologic/Psychiatric: no motor/sensory deficits, alert, normal mood/affect Skin: normal color, warm/dry, rash Progress/Results/Core Measures Results/Orders My Orders Orders - ROBIN ESCOBAR MD Cephalexin Capsule (Keflex Capsule) (02/12/23 15:23) Enoxaparin Injection (Lovenox Injection) (02/12/23 15:30) Vital Signs/I&O 02/12/23 15:00 Temp 36.3 Pulse 110 Resp 16 B/P (MAP) 154/62 (92) Pulse Ox 100 O2 Delivery Room Air Progress Progress Note : Progress Note 77-year-old male with above history coming in due to right lower extremity redness. ABCs were intact and vitals were stable on presentation. Physical exam with some mild erythema that to me is consistent with cellulitis. I recommended putting him on Keflex on top of the doxycycline, so this prescription was sent. I contacted his physician office, and I was able to write an outpatient order for an ultrasound that he can get done today to evaluate for DVT. I have a lower suspicion for DVT, so I will not empirically treat with anticoagulation at this time. The patient was then discharged home in stable condition with strict return precautions. Departure Impression Primary Impression: Cellulitis Qualified Codes: L03.115 - Cellulitis of right lower limb Disposition: HOME, SELF-CARE Condition: Stable Departure-Patient Inst. Decision time for Depature: 15:32 Referrals: JAVIER ROBB MD (PCP/Family) Primary Care Physician Patient Instructions: Cellulitis (Skin Infection), Adult ED Add. Discharge Instructions: This looks like a skin infection, we will start you on a different antibiotic, take both of them that you have been prescribed then. Drive immediately to [facility] to get an ultrasound done today. Scripts Cephalexin (Cephalexin) 500 Mg Tablet 500 MG PO QID for 10 Days, #40 TAB Prov: ROBIN ESCOBAR MD 02/12/23 Work/School Note: Work Release Form Date Seen in the Emergency Department: February 12, 2023 Return to Work: February 13, 2023 Restrictions: No Restrictions ROBIN ESCOBAR MD February 12, 2023 15:24
[2023-02-12] MEDS ORDERED: ENOXAPARIN 60 MG/0.6 ML (LOVENOX) SYR SC ONE (15:30)
[2023-02-12] MEDS ORDERED: CEPH500T PO (15:33)
== END 2023-02-12 15:40 | disposition home or self-care (01) ==
LOC: EDUNIT# 14:54 → ER FS 14:56
DX: L03.115 Cellulitis of right lower limb (principal); Z88.0 Allergy status to penicillin; Z96.651 Presence of right artificial knee joint
CPT/HCPCS: 99281